=== PATIENT | female | born 1955 | race Caucasian/White ===

== ENCOUNTER 2021-08-21 23:30 | Inpatient (IN) ==
[2021-08-21] MEDS ORDERED: 0.9 % SODIUM CHLORIDE 1,000 ML IV ONE (23:37)
[2021-08-21] MEDS ORDERED: ONDANSETRON 4 MG/2 ML VIAL IV ONE (23:37)
[2021-08-22 00:04] LABS: POC Calcium, Ionized 1.07 (1.16-1.32); POC Creatinine 1.5 (0.6-1.2); POC Potassium 4.4 (3.3-5.1)
[2021-08-22] MEDS ORDERED: 0.9 % SODIUM CHLORIDE 1,000 ML IV ONE ×2 (00:08→03:22)
--- NOTE | 2021-08-22 00:11 | Emergency Department Note ---
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 (Reason: Pain) 0RF Pepto-Bismol Max St 525 mg/15 mL suspension 525 mg PO QID PRN (Reason: diarrhea) Qty: 354 0RF Rx Instructions: do not exceed 8 doses in a 24 hour period diarrhe nystatin 100,000 unit/gram powder 1 applic TOPICAL QDAY Qty: 30 12RF Label Comments: For 14 days- Apply under breasts Rx Instructions: Apply under breasts and in groin benzonatate 100 mg capsule 100 mg PO Q8H PRN0RF tramadol 50 mg tablet 50 mg PO Q4H PRN0RF olopatadine 0.2 % drops 1 drp ophthalmic (eye) QDAY PRN (Reason: itching) Qty: 2.5 0RF Tresiba FlexTouch U-200 See Rx Instructions .ROUTE .COMPLEX 0RF Rx Instructions: 25 U in evening, 30 in AM magnesium citrate Solution 300 ml PO ONCE Qty: 296 0RF Rx Instructions: as a single dose polyethylene glycol 3350 [Miralax] 17 gram/dose powder 17 g PO QDAY Qty: 119 0RF Gemtesa 75 mg tablet 75 mg PO QDAY Qty: 90 3RF
[2021-08-22 00:41] LABS: Basophils # (Auto) 0.05 K/mcL (0.00-0.30); Basophils % (Auto) 0.3 % (0.0-2.0); Eosinophils # (Auto) 0.04 K/mcL (0.00-0.70); Eosinophils % (Auto) 0.2 % (0.0-7.0); Hematocrit 43.1 % (34.1-44.9); Hemoglobin 13.3 g/dL (11.2-15.7); Lymphocytes # (Auto) 2.39 K/mcL (1.50-4.80); Lymphocytes % (Auto) 12.2 % (15.5-49.0); Mean Cell Volume 76.8 fL (80.0-100.0); Mean Corpuscular HGB Conc 30.9 g/dL (31.0-36.0); Mean Platelet Volume 9.7 fL (7.4-10.4); Monocytes # (Auto) 1.46 K/mcL (0.10-0.90); Monocytes % (Auto) 7.4 % (1.0-12.0); Neutrophils % (Auto) 79.5 % (38.0-78.0); Platelet Count 363 K/mcL (140-440); RBC 5.61 M/mcL (3.59-5.38); Red Cell Distribution Width 15.6 % (11.5-14.5); WBC 19.6 K/mcL (4.5-11.0)
[2021-08-22] MEDS ORDERED: ONDANSETRON 4 MG/2 ML VIAL IV ONE ×2 (01:54→04:07)
[2021-08-22 02:35] LABS: POC Calcium, Ionized 1.04 (1.16-1.32); POC Creatinine 1.4 (0.6-1.2); POC Potassium 4.3 (3.3-5.1)
[2021-08-22] MEDS ORDERED: VANCOMYCIN 1,000 MG in 0.9 % SODIUM CHLORIDE 250 ML IV ONE (03:18)
[2021-08-22] MEDS ORDERED: cefTRIAXone 1 GM VIAL IV ONE (03:19)
[2021-08-22 03:47] LABS: Appearance,Urine Clear (Clear); Bilirubin,Urine Negative (Negative); Color,Urine Yellow; Culture Indicated,Urine No; Glucose,Urine (UA) Negative (Negative); Ketones,Urine Trace mg/dL (Negative); Leukocyte Esterase,Urine Negative /uL (Negative); Mucus,Urine MOD /hpf; Nitrate,Urine Negative (Negative); Protein,Urine >=300 mg/dL mg/dL (Negative); Urine Blood Negative ery/mcL (Negative); Urine Hyaline Cast 7 /lph (0-2); Urine RBC 1 /hpf (0-3); Urine Squamous Epithelial Cell 1 /hpf (0-4); Urine WBC 9 /hpf (0-4); Urobilinogen,Urine Normal
[2021-08-22] MEDS ORDERED: PROMETHAZINE 50 MG/ML AMPUL IM ONE (04:07)
[2021-08-22] MEDS ORDERED: ONDANSETRON 4 MG/2 ML VIAL ONE (04:17)
[2021-08-22] MEDS ORDERED: PROMETHAZINE 25 MG/ML VIAL IV ONE (04:39)
--- NOTE | 2021-08-22 06:56 | Cat Scan Report ---
INDICATION: Worsening abdominal pain, severe contrast allergy COMPARISON: Previous examination dated 08/20/2021, 0-20 07/06/2021 TECHNIQUE: Axial images were obtained through the abdomen and pelvis. Sagittally and coronally reformatted images. FINDINGS: Examination was initially interpreted by [facility] Lung bases:No pulmonary parenchymal density. No calcified or noncalcified nodule. No pleural or pericardial effusion Liver:Negative to the limits of noncontrast enhanced examination. Liver contour is smooth without evidence for cirrhosis Gallbladder, bilary:Gallbladder is not identified. No dilated bile ducts Spleen:No splenomegaly Pancreas:No pancreatic mass. No peripancreatic abnormality Adrenal glands:Negative Kidneys,ureters,bladder:There are cortical calcifications in the left kidney, unchanged. No hydronephrosis. No hydroureter. No ureteral calculus. No bladder stone. No detectable bladder mass. Gastrointestinal:Somewhat prominent fecal material within the sigmoid colon and rectum. Colon is otherwise negative. No detectable colonic mass Findings consistent with mechanical small bowel obstruction. Stomach and duodenum are somewhat distended and fluid-filled. Jejunum is distended and measures approximately 5 cm in cross-sectional diameter. There appears to be a transition point within the midline pelvis. There is no closed-loop obstruction. Mechanical small bowel obstruction was present on 08/20/2021 although not described. Appendix: The appendix is not well visualized. No evidence for appendicitis Vascular:No abdominal aortic aneurysm Lymphatic:No retroperitoneal adenopathy. No significant mesenteric adenopathy. Mesentery, peritoneum:No free intraperitoneal fluid. No intra-abdominal abscess. No pneumoperitoneum Reproductive:Uterus is not identified. No adnexal mass Musculoskeletal:Severe left convex lumbar scoliosis. No acute compression fracture. Sacrum is negative. No fracture. No lytic lesion. Pelvis is negative. No anterior abdominal wall or inguinal hernia. IMPRESSION: 1. Mechanical small bowel obstruction as above. Dilated fluid-filled jejunum. Distended fluid-filled stomach and duodenum 2. No evidence for closed loop obstruction 3. Severe left convex lumbar scoliosis The exam was performed using radiation dose optimization techniques including, but not limited to, automated exposure control, adjustment of the mA and/or kV according to patient size and use of iterative reconstruction technique. Interpreted and Authenticated by: Simon Silva 08/22/21
--- NOTE | 2021-08-22 06:59 | XRay Report ---
INDICATION: leukocytosis TECHNIQUE: AP portable semiupright chest x-ray COMPARISON: Previous chest x-ray dated 06/25/2020 FINDINGS: Lungs:Lungs are negative. No focal pulmonary parenchymal infiltrate or mass Heart, vascular:No significant cardiomegaly. Pulmonary vascularity is normal. No pulmonary edema or pulmonary congestion Mediastinum, beti:No mediastinal widening. No hilar mass Pleura:No pleural fluid. No pleural-based mass or calcification. Right hemidiaphragm is elevated, slightly increased since previous examination Skeletal:Negative. IMPRESSION: 1. Mildly elevated right hemidiaphragm 2. Otherwise negative chest x-ray. No focal pulmonary parenchymal infiltrates Interpreted and Authenticated by: Simon Silva 08/22/21
--- NOTE | 2021-08-22 07:00 | XRay Report ---
INDICATION: ng tube placement TECHNIQUE: Supine abdomen. COMPARISON: Abdominal and pelvic CT scan dated 08/22/2021 FINDINGS:Esophagogastric tube in the proximal stomach. Dilated gas-filled small bowel consistent with mechanical small bowel obstruction IMPRESSION: Esophagogastric tube in the proximal stomach Interpreted and Authenticated by: Simon Silva 08/22/21
[2021-08-22] MEDS ORDERED: HYDROmorphone 0.5 MG/0.5 ML SYRINGE IV PRN (08:08)
[2021-08-22] MEDS ORDERED: diphenhydrAMINE 50 MG/ML VIAL IV ONE (11:26)
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
[2021-08-22] MEDS: ONDANSETRON 4 MG/2 ML VIAL IV PRN ×2 (14:43→22:06)
[2021-08-22] MEDS: DEXTROSE 5%-LR 1,000 ML IV SCH ×2 (14:44→22:55)
[2021-08-22] MEDS: ENOXAPARIN 40 MG/0.4 ML SYRINGE SQ SCH (14:44)
[2021-08-22] MEDS ORDERED: LORazepam 2 MG/ML VIAL IV PRN (18:58)
--- NOTE | 2021-08-22 19:01 | General Surgery Progress Note ---
SUBJECTIVE Subjective Patient information: Note initiated : 08/22/21 at 6:58 pm Service Date, if different from initiated Date: [] Patient: Nika Carty 65 y/o F admitted on 08/22/21 for Nausea, Vomiting. Chief Complaint: [] Interval history: Patient admitted with pSBO, currently getting sbft. Called by Nurse at 1826 saying "patient does not look well" and "has been throwing up all over". Came to see patient, according to patient she feels much better this evening, had one large emisis around 1800 with one small one after, however feels much less distended, no further abdominal pain. Patient placed back to [facility] on NGT. Constitutional Vitals: Vital Signs Temp Pulse Resp BP Pulse Ox 96.8 F L 75 16 92/58 92 08/22/21 16:00 08/22/21 16:00 08/22/21 16:00 08/22/21 16:00 08/22/21 16:00 Period Temp Pulse Resp BP Sys/Benson Pulse Ox Last 24 Hr 96.6 F-96.9 F 75-96 16-17 90-170/42-92 84-100 Intake and Output 08/22/21 08/22/21 08/22/21 05:59 13:59 21:59 Intake Total 2250 0 1000 Balance 2250 0 1000 Weight 230 lb 230 lb Patient Weight 08/23/21 05:59 Weight 230 lb Intake & Output: Intake & Output 08/22/21 08/22/21 08/22/21 05:59 13:59 21:59 Intake Total 2250 0 1000 Balance 2250 0 1000 Weight 230 lb 230 lb Intake: IV 2250 1000 Sodium Chloride 0.9% 1,000 ml @ 2000 1000 Wide Open IV BOLUS ONE Rx#: [id number] Vancomycin 1,000 mg In Sodium 250 Chloride 0.9% 250 ml @ 250 mls/ hr IV ONCE ONE Rx#:[id number] Oral 0 General appearance: cooperative and no acute distress GI/Abdominal GI/Abdominal exam: Present soft; Absent distended, rebound, rigid or tenderness A/P Assessment and plan (1) SBO (small bowel obstruction): Plan: cont NPO, NGT awaiting sbft KUB in am cbc, cmp in am Status: Acute Time Spent With Patient Time: Total time spent is greater than 50% in coordination of care (as documented) at patient's floor/unit and/or counseling patient:
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
[2021-08-22] MEDS ORDERED: DEXTROSE 50% 50 ML VIAL IV PRN (19:24)
[2021-08-22] MEDS ORDERED: DEXTROSE 31 GM ORAL.SUSP PO PRN (19:24)
[2021-08-22] MEDS: 0.9 % SODIUM CHLORIDE 10 ML SYRINGE IV SCH ×3 (19:28→22:55)
[2021-08-22] MEDS ORDERED: 0.9 % SODIUM CHLORIDE 250 ML IV ONE (19:46)
[2021-08-22] MEDS ORDERED: 0.9 % SODIUM CHLORIDE 500 ML IV ONE (19:48)
[2021-08-22] MEDS ORDERED: POTASSIUM CHLORIDE 20 MEQ TABLET PO PRN ×2 (19:51)
[2021-08-22] MEDS ORDERED: MAGNESIUM SULFATE 2 GM/50 ML BAG IV PRN (19:51)
[2021-08-22] MEDS ORDERED: POTASSIUM CHLORIDE 40 MEQ in DEXTROSE 5% IN WATER 500 ML IV PRN (19:51)
[2021-08-22] MEDS ORDERED: IPRATROPIUM/ALBUTEROL 3 ML AMPUL.NEB NEB PRN (19:51)
[2021-08-22 20:26] LABS: Band Neutrophils % 2 % (0-10); Eosinophils % (Manual) 1 % (0-7); Lymphocytes % 12 % (15-49); Monocytes % (Manual) 9 % (1-12); Platelet Estimate NORMAL (Normal); RBC Morphology NORMAL (Normal); Segmented Neutrophils % 76 % (38-78)
[2021-08-22] MEDS ORDERED: SODIUM CHLORIDE 0.9% IV ONE (21:00)
[2021-08-22] MEDS ORDERED: INSULIN LISPRO 1 UNIT/0.01 ML UNIT SQ SCH (21:00)
[2021-08-22] MEDS ORDERED: FOSPHENYTOIN IV ONE (21:00)
[2021-08-22] MEDS: INSULIN LISPRO 1 UNIT/0.01 ML UNIT SQ SCH (22:06)
[2021-08-22] MEDS: FAMOTIDINE/PF 20 MG/2 ML VIAL IV SCH (22:06)
[2021-08-22] MEDS: PHENYTOIN SOD 100 MG/2 ML VIAL IV SCH (22:07)
[2021-08-22 23:59] LABS: Hemoglobin A1C 9.1 % Hgb (4.0-6.0)
[2021-08-23] MEDS: INSULIN LISPRO 1 UNIT/0.01 ML UNIT SQ SCH ×6 (00:57→23:26)
[2021-08-23] MEDS: DEXTROSE 5%-LR 1,000 ML IV SCH ×2 (00:59→03:44)
[2021-08-23] MEDS: 0.9 % SODIUM CHLORIDE 10 ML SYRINGE IV SCH ×6 (04:28→20:11)
[2021-08-23 07:22] LABS: Basophils # (Auto) 0.04 K/mcL (0.00-0.30); Basophils % (Auto) 0.3 % (0.0-2.0); Eosinophils # (Auto) 0.11 K/mcL (0.00-0.70); Eosinophils % (Auto) 0.7 % (0.0-7.0); Hematocrit 40.1 % (34.1-44.9); Hemoglobin 11.7 g/dL (11.2-15.7); Lymphocytes # (Auto) 2.33 K/mcL (1.50-4.80); Lymphocytes % (Auto) 14.7 % (15.5-49.0); Mean Cell Volume 80.7 fL (80.0-100.0); Mean Corpuscular HGB Conc 29.2 g/dL (31.0-36.0); Mean Platelet Volume 10.4 fL (7.4-10.4); Monocytes # (Auto) 1.17 K/mcL (0.10-0.90); Monocytes % (Auto) 7.4 % (1.0-12.0); Neutrophils % (Auto) 76.5 % (38.0-78.0); Platelet Count 271 K/mcL (140-440); RBC 4.97 M/mcL (3.59-5.38); Red Cell Distribution Width 15.7 % (11.5-14.5); WBC 15.8 K/mcL (4.5-11.0)
[2021-08-23 07:39] LABS: ALT/SGPT 15 U/L (<40); AST/SGOT 18 U/L (<32); Albumin 3.6 gm/dL (3.2-5.2); Alkaline Phosphatase 140 U/L (39-117); Bilirubin,Direct < 0.2 mg/dL (0-0.3); Bilirubin,Total 0.3 mg/dL (0.1-1.0); Blood Urea Nitrogen 24 mg/dL (8-23); Carbon Dioxide 31 mmol/L (22-30); Chloride 102 mmol/L (96-108); Globulin 3.7 gm/dL (2.2-3.7); Glomerular Filtration Rate 47; Glucose 179 mg/dL (70-105); Lactate Dehydrogenase 232 U/L (135-225); Phosphorous 4.9 mg/dL (2.5-4.5); Triglycerides 256 mg/dL (<150); Uric Acid 10.3 mg/dL (2.5-8.0)
[2021-08-23] MEDS: LEVOTHYROXINE 100 MCG VIAL IV SCH (07:54)
[2021-08-23] MEDS ORDERED: DEXTROSE 5% IN WATER 250 ML IV ONE (08:13)
--- NOTE | 2021-08-23 08:14 | Internal Med Progress Note ---
SUBJECTIVE Subjective Patient information: Note initiated : 08/23/21 at 8:08 am Service Date, if different from initiated Date: [] Patient: Nika Carty 65 y/o F admitted on 08/22/21 for Nausea, Vomiting. Chief Complaint: [] Interval history: History of present illness: Presented to the ED not feeling well and complaining of nausea vomiting and weakness, also diagnosed with influenza the previous day. Flu screen in the ED was negative. Patient having vomiting multiple times a day the past couple days. Last BM was about 6 days ago. Nominal pain is severely achy diffuse but worse in the left abdomen. Denies fever chills headaches. No chest pain. Has chronic shortness of breath at baseline. Patient unable to keep any liquids down. CT showed signs consistent with small bowel obstruction. NG tube was placed and case was discussed with Dr. Villarreal also found to be dehydrated now elevated BUN/creatinine. Also given empiric antibiotics because she met SIRS criteria. Chest x-ray and UA unremarkable for any infectious process. She did have a leukocytosis but no fevers. Leukocytosis likely reactive from nausea vomiting. 08/23 Patient has nausea. She has abdominal pain but has improved. She is not passing any flatus. Sodium elevated will adjust IV fluids. Review of Systems: denies headache/fever/chills/vomiting/chest pain/cough/dyspnea/diarrhea. Otherwise see above. Constitutional Vitals: Vital Signs Temp Pulse Resp BP Pulse Ox 97.1 F 74 22 114/57 96 08/23/21 02:49 08/23/21 02:49 08/23/21 02:49 08/23/21 02:49 08/23/21 02:49 Period Temp Pulse Resp BP Sys/Benson Pulse Ox Last 24 Hr 96.6 F-98.2 F 74-92 16-24 90-136/42-66 90-97 Intake and Output 08/22/21 08/23/21 08/23/21 21:59 05:59 13:59 Intake Total 1564 936 Output Total 1750 1750 125 Balance -186 -814 -125 Weight 106.821 kg Intake & Output: Intake & Output 08/22/21 08/23/21 08/23/21 21:59 05:59 13:59 Intake Total 1564 936 Output Total 1750 1750 125 Balance -186 -814 -125 Weight 106.821 kg Intake: IV 1564 936 Sodium Chloride 0.9% 1,000 ml @ 1000 Wide Open IV BOLUS ONE Rx#: [id number] Sodium Chloride 0.9% 500 ml @ 500 250 mls/hr IV BOLUS ONE Rx#: [id number] Dextrose 5%-Lactated Ringers 1, 564 436 000 ml @ 125 mls/hr IV .Q8H [facility] Rx#:[id number] Oral 0 Tube Feeding 0 0 Output: Gastric Drainage 1750 1150 Right Nare 1750 1150 Urine Catheter Amount 600 125 Uretheral (Rodriguez) 450 Other: Percent of Meal Consumed NPO Urine Appearance Clear Clear Uretheral (Rodriguez) Clear Urine Color Dark Abbie Dark Abbie Uretheral (Rodriguez) Dark Abbie Urine Odor Strong Strong Uretheral (Rodriguez) Strong # Emeses 1 Exam: General: Alert, Awake, No acute Distress, obese Eyes/N/T: EOMI, Head/Neck: neck supple, CV: RRR, No murmurs, Pulm: Clear b/l, no wheezing/rhonchi/rales Abd: soft,tender and distended, decreased BS x4 Ext: no clubbing/cyanosis/edema Neuro: Alert, no focal deficits, moves all extremities, Skin: warm/dry OBJ DATA Labs CBC & Chem 7: 08/23/21 05:23 08/23/21 05:23 Labs: Abnormal Lab Results 08/23/21 08/23/21 08/22/21 05:23 05:23 02:41 WBC 15.8 H RBC MCV MCH 23.5 L MCHC 29.2 L RDW 15.7 H Neut % (Auto) Lymph % (Auto) 14.7 L [place] # (Auto) 1.17 H Lymphocytes % Immature Gran # 0.07 H Absolute Neutrophils 12.16 H POC VBG pH POC VBG pO2 POC VBG HCO3 POC VBG Total CO2 POC Venous O2 Sat POC VBG Base Excess Sodium 146 H Carbon Dioxide 31 H POC Total CO2 POC BUN BUN 24 H Creatinine 1.2 H POC Creatinine Glucose 179 H POC Glucose Hemoglobin A1c Uric Acid 10.3 H POC WB Ioniz Calcium Phosphorus 4.9 H GGT 319 H Alkaline Phosphatase 140 H Lactate Dehydrogenase 232 H Triglycerides 256 H Urine Protein >=300 mg/dl A Urine Ketones Trace A Urine WBC 9 H Hyaline Casts 7 H Urine Mucus Mod A 08/22/21 08/22/21 08/22/21 02:32 02:27 00:09 WBC RBC MCV MCH MCHC RDW Neut % (Auto) Lymph % (Auto) [place] # (Auto) Lymphocytes % Immature Gran # Absolute Neutrophils POC VBG pH 7.45 H POC VBG pO2 90 H POC VBG HCO3 32.3 H POC VBG Total CO2 34.0 H POC Venous O2 Sat 97.0 H POC VBG Base Excess 8.0 H* Sodium Carbon Dioxide POC Total CO2 POC BUN 31 H BUN Creatinine POC Creatinine 1.4 H Glucose POC Glucose 248 H Hemoglobin A1c 9.1 H Uric Acid POC WB Ioniz Calcium 1.04 L Phosphorus GGT Alkaline Phosphatase Lactate Dehydrogenase Triglycerides Urine Protein Urine Ketones Urine WBC Hyaline Casts Urine Mucus 08/22/21 08/22/21 08/22/21 00:09 00:09 00:01 WBC 19.6 H RBC 5.61 H MCV 76.8 L MCH 23.7 L MCHC 30.9 L RDW 15.6 H Neut % (Auto) 79.5 H Lymph % (Auto) 12.2 L [place] # (Auto) 1.46 H Lymphocytes % 12 L Immature Gran # 0.08 H Absolute Neutrophils 15.70 H POC VBG pH POC VBG pO2 POC VBG HCO3 POC VBG Total CO2 POC Venous O2 Sat POC VBG Base Excess Sodium Carbon Dioxide POC Total CO2 31.0 H POC BUN 35 H BUN Creatinine POC Creatinine 1.5 H Glucose POC Glucose 276 H Hemoglobin A1c Uric Acid POC WB Ioniz Calcium 1.07 L Phosphorus GGT Alkaline Phosphatase Lactate Dehydrogenase Triglycerides Urine Protein Urine Ketones Urine WBC Hyaline Casts Urine Mucus Meds: Medications Albuterol/Ipratropium (Ipratropium/Albuterol 3 Ml Ampul.Neb) 3 ml NEB Q4HP PRN PRN Reason: Shortness Of Breath Dextrose (Dextrose 50% 50 Ml Vial) 0 ml IV UD PRN PRN Reason: Per Sliding Scale Diagnostic Test (Pha) (Accu-Chek 1 Each Strip) 1 each FS Q6H [facility] Last Admin: 08/23/21 05:34 Dose: 1 each Documented by: Enoxaparin Sodium (Enoxaparin 40 Mg/0.4 Ml Syringe) 40 mg SQ DAILY [facility] Last Admin: 08/22/21 14:44 Dose: 40 mg Documented by: Famotidine (Famotidine/Pf 20 Mg/2 Ml Vial) 20 mg IV Q12 [facility] Last Admin: 08/22/21 22:06 Dose: 20 mg Documented by: Glucose (Dextrose 31 Gm Oral.Susp) 15 gm PO PRN PRN PRN Reason: Hypoglycemia Hydromorphone HCl (Hydromorphone 0.5 Mg/0.5 Ml Syringe) 0.5 mg IV Q2HP PRN; Pr otocol PRN Reason: Per Pain Protocol Dextrose/Lactated Ringer's (Dextrose 5%-Lactated Ringers) 1,000 mls @ 125 mls/hr IV .Q8H [facility] Last Admin: 08/23/21 03:44 Dose: 125 mls/hr Documented by: Potassium Chloride 40 meq/ (Dextrose) 520 mls @ 130 mls/hr IV UD PRN PRN Reason: Potassium < 3 Magnesium Sulfate (Magnesium Sulfate) 2 gm in 50 mls @ 50 mls/hr IV UD PRN PRN Reason: Magnesium </= 1.6 Insulin Human Lispro (Insulin Lispro 1 Unit/0.01 Ml Unit) 0 unit SQ Q6H [facility]; Protocol Last Admin: 08/23/21 06:46 Dose: Not Given Documented by: Levothyroxine Sodium (Levothyroxine 100 Mcg Vial) 125 mcg IV QAMAC [facility] Last Admin: 08/23/21 07:54 Dose: 125 mcg Documented by: Lorazepam (Lorazepam 2 Mg/Ml Vial) 1 - 2 mg IV Q2HP PRN PRN Reason: Seizure Activity Ondansetron HCl (Ondansetron 4 Mg/2 Ml Vial) 4 mg IV Q6HP PRN PRN Reason: Nausea And Vomiting Last Admin: 08/22/21 22:06 Dose: 4 mg Documented by: Phenytoin Sodium (Phenytoin Sod 100 Mg/2 Ml Vial) 200 mg IV QAM [facility] Phenytoin Sodium (Phenytoin Sod 100 Mg/2 Ml Vial) 300 mg IV QHS [facility] Last Admin: 08/22/21 22:07 Dose: 300 mg Documented by: Potassium Chloride (Potassium Chloride 20 Meq Tablet) 40 meq PO UD PRN PRN Reason: Potssium is 3-3.5 Potassium Chloride (Potassium Chloride 20 Meq Tablet) 40 meq PO UD PRN PRN Reason: Potassium < 3 Sodium Chloride (0.9 % Sodium Chloride 10 Ml Syringe) 10 ml IV Q8 [facility] Last Admin: 08/23/21 04:28 Dose: Not Given Documented by: Sodium Chloride (0.9 % Sodium Chloride 10 Ml Syringe) 10 ml IV Q8 [facility] Last Admin: 08/23/21 04:28 Dose: Not Given Documented by: A/P Narrative A/P Narrative: A: *SBO: *ANDRES on CKD II: improving *Volume depletion: *DM w/hyperglycemia on admit: -A1c 9.1 *Leukocytosis: Likely reactive. afebrile, no bandemia, cxr/ua unremarkable *Mild Hypernatremia: *h/o Sz d/o: on phenytoin *Depression/anxiety: *Hypothyroidism: *GERD: *Obesity: bmi 35 *KYLEE: But does not tolerate home BiPAP *Asthma: P: -SBO/Diet/NGT/imaging per surgery -IVF adjust -f/u renal fxn -basal (at reduced dose while npo vs hold based on trend) and SSI, metformin held -cont home IH's, prn neb -oral meds to IV including phenytoin -Home medication reconciliation -ppx: lovenox / h2 Time Spent With Patient Time: Total time spent is greater than 50% in coordination of care (as documented) at patient's floor/unit and/or counseling patient: Total time spent with greater than 50% in coordination of care (as documented) at patient's floor/unit and/or counseling patient:: 35 - 50 minutes QUALITY VTE Deep Vein Thrombosis/Pulmonary Embolism Present on Admission: No
[2021-08-23] MEDS ORDERED: POTASSIUM CHLORIDE 10 MEQ in 0.45 % SODIUM CHLORIDE 1,000 ML IV SCH (08:15)
--- NOTE | 2021-08-23 08:39 | General Surgery Progress Note ---
SUBJECTIVE Subjective Patient information: Note initiated : 08/23/21 at 8:35 am Service Date, if different from initiated Date: [] Patient: Nika Carty 65 y/o F admitted on 08/22/21 for Nausea, Vomiting. Chief Complaint: [] Interval history: Patient feels better this morning, she feels less distended. Small bowel follow-through showed contrast hung up in the small bowel not in through colon. KUB this morning does not show contrast into colon although patient was placed back on NG tube suction due to emesis yesterday. Constitutional Vitals: Vital Signs Temp Pulse Resp BP Pulse Ox 97.1 F 74 22 114/57 96 08/23/21 02:49 08/23/21 02:49 08/23/21 02:49 08/23/21 02:49 08/23/21 02:49 Period Temp Pulse Resp BP Sys/Benson Pulse Ox Last 24 Hr 96.6 F-98.2 F 74-92 16-24 90-122/42-66 90-97 Intake and Output 08/22/21 08/23/21 08/23/21 21:59 05:59 13:59 Intake Total 1564 936 Output Total 1750 1750 125 Balance -186 -814 -125 Weight 235 lb 8 oz Intake & Output: Intake & Output 08/22/21 08/23/21 08/23/21 21:59 05:59 13:59 Intake Total 1564 936 Output Total 1750 1750 125 Balance -186 -814 -125 Weight 235 lb 8 oz Intake: IV 1564 936 Sodium Chloride 0.9% 1,000 ml @ 1000 Wide Open IV BOLUS ONE Rx#: [id number] Sodium Chloride 0.9% 500 ml @ 500 250 mls/hr IV BOLUS ONE Rx#: [id number] Dextrose 5%-Lactated Ringers 1, 564 436 000 ml @ 125 mls/hr IV .Q8H [facility] Rx#:[id number] Oral 0 Tube Feeding 0 0 Output: Gastric Drainage 1750 1150 Right Nare 1750 1150 Urine Catheter Amount 600 125 Uretheral (Rodriguez) 450 Other: Percent of Meal Consumed NPO Urine Appearance Clear Clear Uretheral (Rodriguez) Clear Urine Color Dark Abbie Dark Abbie Uretheral (Rodriguez) Dark Abbie Urine Odor Strong Strong Uretheral (Rodriguez) Strong # Emeses 1 General appearance: cooperative and no acute distress GI/Abdominal GI/Abdominal exam: Present soft; Absent distended or tenderness A/P Assessment and plan (1) SBO (small bowel obstruction): Plan: Partial small bowel obstruction, no resolution with small bowel follow-through. Plan: Continue n.p.o., NG tube suction. Clinically patient feels better and is less distended. We will continue to follow at this time. Appreciate hospitalist input on medical problems. Status: Acute Time Spent With Patient Time: Total time spent is greater than 50% in coordination of care (as documented) at patient's floor/unit and/or counseling patient:
--- NOTE | 2021-08-23 08:51 | XRay Report ---
INDICATION: sbo TECHNIQUE: Oral contrast material was administered through the esophagogastric tube. Serial imaging was performed to 20 hours postingestion. COMPARISON: CT scan dated 08/22/2021 FINDINGS: Persistent jejunal dilatation. Maximum cross-sectional jejunal diameter measures 5.5 cm. Small bowel contrast material does not readily pass through the small bowel. At 4 hours post ingestion there is dilated opacified small bowel within the pelvis. By 20 hours postingestion. Contrast material is largely absorbed and not apparent. There is no contrast material identified within the colon. Appearance is consistent with high-grade mechanical small bowel obstruction IMPRESSION: 1. Dissolution and absorption of contrast material by 20 hours postingestion. There is no contrast material identified within colon 2. Appearance remains consistent with high-grade mechanical small bowel obstruction Interpreted and Authenticated by: Simon Silva 08/23/21
[2021-08-23] MEDS: PHENYTOIN SOD 100 MG/2 ML VIAL IV SCH ×2 (09:59→20:10)
[2021-08-23] MEDS: FAMOTIDINE/PF 20 MG/2 ML VIAL IV SCH ×2 (09:59→20:10)
[2021-08-23] MEDS ORDERED: METHOCARBAMOL 1,000 MG/10 ML VIAL IV PRN (10:00)
[2021-08-23] MEDS: ENOXAPARIN 40 MG/0.4 ML SYRINGE SQ SCH (10:00)
[2021-08-23] MEDS ORDERED: OLOPATADINE 0.2% OU PRN (10:08)
[2021-08-23] MEDS: POTASSIUM CHLORIDE 20 MEQ in 0.45 % SODIUM CHLORIDE 1,000 ML IV SCH ×3 (10:14→19:45)
[2021-08-23] MEDS ORDERED: BENZOCAINE 1 SPRAY BOTTLE TOPICAL ONE (12:41)
[2021-08-23] MEDS ORDERED: BENZOCAINE 20% TOPICAL PRN (15:41)
[2021-08-24] MEDS: POTASSIUM CHLORIDE 20 MEQ in 0.45 % SODIUM CHLORIDE 1,000 ML IV SCH (03:45)
[2021-08-24] MEDS: 0.9 % SODIUM CHLORIDE 10 ML SYRINGE IV SCH ×6 (05:37→21:04)
[2021-08-24] MEDS: INSULIN LISPRO 1 UNIT/0.01 ML UNIT SQ SCH ×3 (06:05→17:21)
[2021-08-24 06:06] LABS: Basophils # (Auto) 0.04 K/mcL (0.00-0.30); Basophils % (Auto) 0.3 % (0.0-2.0); Eosinophils % (Auto) 2.5 % (0.0-7.0); Hematocrit 41.4 % (34.1-44.9); Hemoglobin 11.8 g/dL (11.2-15.7); Lymphocytes # (Auto) 2.32 K/mcL (1.50-4.80); Mean Cell Volume 82.6 fL (80.0-100.0); Mean Corpuscular HGB Conc 28.5 g/dL (31.0-36.0); Mean Platelet Volume 9.6 fL (7.4-10.4); Monocytes # (Auto) 0.83 K/mcL (0.10-0.90); Monocytes % (Auto) 6.8 % (1.0-12.0); Neutrophils % (Auto) 71.1 % (38.0-78.0); Platelet Count 239 K/mcL (140-440); RBC 5.01 M/mcL (3.59-5.38); Red Cell Distribution Width 15.3 % (11.5-14.5); WBC 12.2 K/mcL (4.5-11.0)
[2021-08-24 06:32] LABS: ALT/SGPT 21 U/L (<40); AST/SGOT 34 U/L (<32); Albumin 3.6 gm/dL (3.2-5.2); Alkaline Phosphatase 150 U/L (39-117); Bilirubin,Direct 0.2 mg/dL (<0.3); Bilirubin,Total 0.4 mg/dL (0.1-1.0); Blood Urea Nitrogen 21 mg/dL (8-23); Calcium 9.3 mg/dL (8.6-10.4); Carbon Dioxide 30 mmol/L (22-30); Chloride 104 mmol/L (96-108); Globulin 3.6 gm/dL (2.2-3.7); Glomerular Filtration Rate 67; Glucose 122 mg/dL (70-105); Lactate Dehydrogenase 210 U/L (135-225); Phosphorous 3.4 mg/dL (2.5-4.5); Triglycerides 283 mg/dL (<150); Uric Acid 8.8 mg/dL (2.5-8.0)
[2021-08-24] MEDS: LEVOTHYROXINE 100 MCG VIAL IV SCH (06:42)
[2021-08-24] MEDS ORDERED: diphenhydrAMINE 50 MG/ML VIAL IV SCH (08:15)
--- NOTE | 2021-08-24 08:22 | Internal Med Progress Note ---
SUBJECTIVE Subjective Patient information: Note initiated : 08/24/21 at 8:20 am Service Date, if different from initiated Date: [] Patient: Nika Carty 65 y/o F admitted on 08/22/21 for Nausea, Vomiting. Chief Complaint: [] Interval history: History of present illness: Presented to the ED not feeling well and complaining of nausea vomiting and weakness, also diagnosed with influenza the previous day. Flu screen in the ED was negative. Patient having vomiting multiple times a day the past couple days. Last BM was about 6 days ago. Nominal pain is severely achy diffuse but worse in the left abdomen. Denies fever chills headaches. No chest pain. Has chronic shortness of breath at baseline. Patient unable to keep any liquids down. CT showed signs consistent with small bowel obstruction. NG tube was placed and case was discussed with Dr. Villarreal also found to be dehydrated now elevated BUN/creatinine. Also given empiric antibiotics because she met SIRS criteria. Chest x-ray and UA unremarkable for any infectious process. She did have a leukocytosis but no fevers. Leukocytosis likely reactive from nausea vomiting. 08/23 Patient has nausea. She has abdominal pain but has improved. She is not passing any flatus. Sodium elevated will adjust IV fluids. 08/24 Patient states she had small BM this morning. Overall feeling better as far as abdominal pain and less nausea. Renal function improved sodium improved. Small bowel follow-through ordered by surgery. Review of Systems: denies headache/fever/chills/vomiting/chest pain/cough/dyspnea/diarrhea. Otherwise see above. Constitutional Vitals: Vital Signs Temp Pulse Resp BP Pulse Ox O2 Del Method O2 Flow Rate 97.8 F 75 14 119/61 99 2 08/24/21 06:58 08/24/21 06:58 08/24/21 07:25 08/24/21 06:58 08/24/21 07:25 08/24/21 07:25 08/24/21 06:58 Period Temp Pulse Resp BP Sys/Benson Pulse Ox O2 Del Method O2 Flow Rate Last 24 Hr 96.7 F-98.1 F 65-78 14-20 103-119/60-74 94-99 Nasal Cannula- Room Air 2-2 Intake and Output 08/23/21 08/24/21 08/24/21 21:59 05:59 13:59 Intake Total 1260 998 0 Output Total 950 700 Balance 310 298 0 Weight 107.32 kg Intake & Output: Intake & Output 08/23/21 08/24/21 08/24/21 21:59 05:59 13:59 Intake Total 1260 998 0 Output Total 950 700 Balance 310 298 0 Weight 107.32 kg Intake: IV 1260 998 Dextrose 5% in Water 250 ml @ 250 250 mls/hr IV .Q1H ONE Rx#: [id number] Potassium Chloride 20 Meq In 1010 998 Sodium Chloride 0.45% 1,000 ml @ 125 mls/hr IV .Q8H5M COUNTS INCLUDE 234 BEDS AT THE [facility] Rx#: [id number] Oral 0 Tube Feeding 0 0 Output: Gastric Drainage 450 400 Right Nare 450 400 Urine Catheter Amount 500 300 Other: Urine Appearance Clear Clear Clear Uretheral (Rodriguez) Clear Clear Urine Color Dark Abbie Dark Abbie Dark Yellow Uretheral (Rodriguez) Dark Abbie Dark Yellow Urine Odor Normal Normal Strong Uretheral (Rodriguez) Normal Stool Size Small Stool Color Brown Stool Consistency Liquid Exam: General: Alert, Awake, No acute Distress, obese Eyes/N/T: EOMI, Head/Neck: neck supple, CV: RRR, No murmurs, Pulm: Clear b/l, no wheezing/rhonchi/rales Abd: soft,tender and distended, decreased BS x4 but better today Ext: no clubbing/cyanosis/edema Neuro: Alert, no focal deficits, moves all extremities, Skin: warm/dry OBJ DATA Labs CBC & Chem 7: 08/24/21 05:19 08/24/21 05:19 Labs: Abnormal Lab Results 08/24/21 08/24/21 08/23/21 05:19 05:19 05:23 WBC 12.2 H RBC MCV MCH 23.6 L MCHC 28.5 L RDW 15.3 H Neut % (Auto) Lymph % (Auto) [place] # (Auto) Lymphocytes % Immature Gran # Absolute Neutrophils 8.72 H POC VBG pH POC VBG pO2 POC VBG HCO3 POC VBG Total CO2 POC Venous O2 Sat POC VBG Base Excess Sodium 146 H Carbon Dioxide 31 H POC Total CO2 POC BUN BUN 24 H Creatinine 1.2 H POC Creatinine Glucose 122 H 179 H POC Glucose Hemoglobin A1c Uric Acid 8.8 H 10.3 H POC WB Ioniz Calcium Phosphorus 4.9 H GGT 370 H 319 H AST 34 H Alkaline Phosphatase 150 H 140 H Lactate Dehydrogenase 232 H Triglycerides 283 H 256 H Urine Protein Urine Ketones Urine WBC Hyaline Casts Urine Mucus 08/23/21 08/22/21 08/22/21 05:23 02:41 02:32 WBC 15.8 H RBC MCV MCH 23.5 L MCHC 29.2 L RDW 15.7 H Neut % (Auto) Lymph % (Auto) 14.7 L [place] # (Auto) 1.17 H Lymphocytes % Immature Gran # 0.07 H Absolute Neutrophils 12.16 H POC VBG pH 7.45 H POC VBG pO2 90 H POC VBG HCO3 32.3 H POC VBG Total CO2 34.0 H POC Venous O2 Sat 97.0 H POC VBG Base Excess 8.0 H* Sodium Carbon Dioxide POC Total CO2 POC BUN BUN Creatinine POC Creatinine Glucose POC Glucose Hemoglobin A1c Uric Acid POC WB Ioniz Calcium Phosphorus GGT AST Alkaline Phosphatase Lactate Dehydrogenase Triglycerides Urine Protein >=300 mg/dl A Urine Ketones Trace A Urine WBC 9 H Hyaline Casts 7 H Urine Mucus Mod A 08/22/21 08/22/21 08/22/21 02:27 00:09 00:09 WBC RBC MCV MCH MCHC RDW Neut % (Auto) Lymph % (Auto) [place] # (Auto) Lymphocytes % 12 L Immature Gran # Absolute Neutrophils POC VBG pH POC VBG pO2 POC VBG HCO3 POC VBG Total CO2 POC Venous O2 Sat POC VBG Base Excess Sodium Carbon Dioxide POC Total CO2 POC BUN 31 H BUN Creatinine POC Creatinine 1.4 H Glucose POC Glucose 248 H Hemoglobin A1c 9.1 H Uric Acid POC WB Ioniz Calcium 1.04 L Phosphorus GGT AST Alkaline Phosphatase Lactate Dehydrogenase Triglycerides Urine Protein Urine Ketones Urine WBC Hyaline Casts Urine Mucus 08/22/21 08/22/21 00:09 00:01 WBC 19.6 H RBC 5.61 H MCV 76.8 L MCH 23.7 L MCHC 30.9 L RDW 15.6 H Neut % (Auto) 79.5 H Lymph % (Auto) 12.2 L [place] # (Auto) 1.46 H Lymphocytes % Immature Gran # 0.08 H Absolute Neutrophils 15.70 H POC VBG pH POC VBG pO2 POC VBG HCO3 POC VBG Total CO2 POC Venous O2 Sat POC VBG Base Excess Sodium Carbon Dioxide POC Total CO2 31.0 H POC BUN 35 H BUN Creatinine POC Creatinine 1.5 H Glucose POC Glucose 276 H Hemoglobin A1c Uric Acid POC WB Ioniz Calcium 1.07 L Phosphorus GGT AST Alkaline Phosphatase Lactate Dehydrogenase Triglycerides Urine Protein Urine Ketones Urine WBC Hyaline Casts Urine Mucus Meds: Medications Albuterol/Ipratropium (Ipratropium/Albuterol 3 Ml Ampul.Neb) 3 ml NEB Q4HP PRN PRN Reason: Shortness Of Breath Dextrose (Dextrose 50% 50 Ml Vial) 0 ml IV UD PRN PRN Reason: Per Sliding Scale Diagnostic Test (Pha) (Accu-Chek 1 Each Strip) 1 each FS Q6H COUNTS INCLUDE 234 BEDS AT [facility] Last Admin: 08/24/21 05:55 Dose: 1 each Diphenhydramine HCl (Diphenhydramine 50 Mg/Ml Vial) 12.5 mg IV 0815 COUNTS INCLUDE 234 BEDS AT [facility] Stop: 08/24/21 11:00 Enoxaparin Sodium (Enoxaparin 40 Mg/0.4 Ml Syringe) 40 mg SQ DAILY COUNTS INCLUDE 234 BEDS AT [facility] Last Admin: 08/23/21 10:00 Dose: 40 mg Famotidine (Famotidine/Pf 20 Mg/2 Ml Vial) 20 mg IV Q12 [facility]S INCLUDE 234 BEDS AT [facility] Last Admin: 08/23/21 20:10 Dose: 20 mg Glucose (Dextrose 31 Gm Oral.Susp) 15 gm PO PRN PRN PRN Reason: Hypoglycemia Hydromorphone HCl (Hydromorphone 0.5 Mg/0.5 Ml Syringe) 0.5 mg IV Q2HP PRN; Protocol PRN Reason: Per Pain Protocol Last Admin: 08/24/21 06:42 Dose: 0.5 mg Potassium Chloride 40 meq/ (Dextrose) 520 mls @ 130 mls/hr IV UD PRN PRN Reason: Potassium < 3 Magnesium Sulfate (Magnesium Sulfate) 2 gm in 50 mls @ 50 mls/hr IV UD PRN PRN Reason: Magnesium </= 1.6 Potassium Chloride 20 meq/ (Sodium Chloride) 1,010 mls @ 125 mls/hr IV .Q8H5M COUNTS INCLUDE 234 BEDS AT [facility] Last Admin: 08/24/21 03:45 Dose: 125 mls/hr Insulin Human Lispro (Insulin Lispro 1 Unit/0.01 Ml Unit) 0 unit SQ Q6H COUNTS INCLUDE 234 BEDS AT [facility]; Protocol Last Admin: 08/24/21 06:05 Dose: Not Given Levothyroxine Sodium (Levothyroxine 100 Mcg Vial) 125 mcg IV QAMAC COUNTS INCLUDE 234 BEDS AT [facility] Last Admin: 08/24/21 06:42 Dose: 125 mcg Lorazepam (Lorazepam 2 Mg/Ml Vial) 1 - 2 mg IV Q2HP PRN PRN Reason: Seizure Activity Methocarbamol (Methocarbamol 1,000 Mg/10 Ml Vial) 750 mg IV Q8HP PRN PRN Reason: Muscle Spasm Benzocaine 20% 1 ([place] Bottle) 1 dose TOPICAL Q4HP PRN PRN Reason: SORE THROAT Last Admin: 08/23/21 17:13 Dose: 1 dose Ondansetron HCl (Ondansetron 4 Mg/2 Ml Vial) 4 mg IV Q6HP PRN PRN Reason: Nausea And Vomiting Last Admin: 08/22/21 22:06 Dose: 4 mg Fluticasone Furoate- Vilanterol [Breo Ellipta] 200 Mcg/25 Mcg Inhaler 1 dose INH DAILY [facility] Olopatadine 0.2 % (Ophthalmic Drops) 1 dose OU DAILYP PRN PRN Reason: itching Phenytoin Sodium (Phenytoin Sod 100 Mg/2 Ml Vial) 200 mg IV QAM COUNTS INCLUDE 234 BEDS AT [facility] Last Admin: 08/23/21 09:59 Dose: 200 mg Phenytoin Sodium (Phenytoin Sod 100 Mg/2 Ml Vial) 300 mg IV QHS COUNTS INCLUDE 234 BEDS AT [facility] Last Admin: 08/23/21 20:10 Dose: 300 mg Potassium Chloride (Potassium Chloride 20 Meq Tablet) 40 meq PO UD PRN PRN Reason: Potssium is 3-3.5 Potassium Chloride (Potassium Chloride 20 Meq Tablet) 40 meq PO UD PRN PRN Reason: Potassium < 3 Sodium Chloride (0.9 % Sodium Chloride 10 Ml Syringe) 10 ml IV Q8 COUNTS INCLUDE 234 BEDS AT [facility] Last Admin: 08/24/21 05:37 Dose: Not Given Sodium Chloride (0.9 % Sodium Chloride 10 Ml Syringe) 10 ml IV Q8 COUNTS INCLUDE 234 BEDS AT [facility] Last Admin: 08/24/21 06:06 Dose: Not Given A/P Narrative A/P Narrative: A: *SBO: small BM this morning *ANDRES on CKD II: improved *Volume depletion: improved *DM w/hyperglycemia on admit: -A1c 9.1 *Leukocytosis: Likely reactive. afebrile, no bandemia, cxr/ua unremarkable. improving w/o abx *Mild Hypernatremia: improving *h/o Sz d/o: on phenytoin *Depression/anxiety: *Hypothyroidism: *GERD: *Obesity: bmi 35 *KYLEE: But does not tolerate home BiPAP *Asthma: P: -SBO/Diet/NGT/imaging per surgery -IVF -f/u renal fxn -hold home basal while npo and SSI, metformin held -cont home IH's, prn neb -oral meds to IV including phenytoin -ppx: lovenox / h2 Time Spent With Patient Time: Total time spent is greater than 50% in coordination of care (as documented) at patient's floor/unit and/or counseling patient: Total time spent with greater than 50% in coordination of care (as documented) at patient's floor/unit and/or counseling patient:: 25 - 35 minutes QUALITY VTE Deep Vein Thrombosis/Pulmonary Embolism Present on Admission: No
[2021-08-24] MEDS: PHENYTOIN SOD 100 MG/2 ML VIAL IV SCH ×2 (08:42→20:47)
[2021-08-24] MEDS: 0.45 % SODIUM CHLORIDE 1,000 ML IV SCH ×3 (08:43→17:24)
[2021-08-24] MEDS: ENOXAPARIN 40 MG/0.4 ML SYRINGE SQ SCH (08:44)
[2021-08-24] MEDS: FAMOTIDINE/PF 20 MG/2 ML VIAL IV SCH ×2 (08:44→20:46)
[2021-08-24] MEDS: FLUTICASONE FUROATE VILANTEROL INH SCH (10:02)
[2021-08-24] MEDS: ONDANSETRON 4 MG/2 ML VIAL IV PRN (10:04)
[2021-08-24] MEDS ORDERED: DIATRIZOATE MEGLU/DIATRIZO SOD 120 ML BOTTLE PO ONE (11:08)
--- NOTE | 2021-08-24 11:35 | XRay Report ---
INDICATION: Follow-up partial small bowel obstruction TECHNIQUE: Water-soluble contrast material was given through an esophagogastric tube. Images were obtained at 2 hours and 3 hours post ingestion COMPARISON: Previous examination dated 08/22/2021 FINDINGS: Significant interval improvement. There is contrast material within the colon by 2 hours postingestion. There is contrast material in the rectum at 3 hours post ingestion. There is persistent small bowel but with decreased dilatation since 08/22/2021. IMPRESSION: 1. Significant interval improvement since 08/22/2021 2. Contrast material in the colon by 2 hours postingestion Interpreted and Authenticated by: Simon Silva 08/24/21
[2021-08-25] MEDS: INSULIN LISPRO 1 UNIT/0.01 ML UNIT SQ SCH ×2 (00:20→05:49)
[2021-08-25] MEDS: 0.45 % SODIUM CHLORIDE 1,000 ML IV SCH ×2 (01:40→08:10)
[2021-08-25] MEDS: 0.9 % SODIUM CHLORIDE 10 ML SYRINGE IV SCH ×2 (05:32→05:33)
[2021-08-25] MEDS ORDERED: LEVOTHYROXINE 100 MCG TABLET PO SCH (07:30)
[2021-08-25] MEDS ORDERED: LEVOTHYROXINE 75 MCG TABLET PO SCH (07:30)
[2021-08-25] MEDS: LEVOTHYROXINE 100 MCG VIAL IV SCH (08:09)
[2021-08-25] MEDS: ENOXAPARIN 40 MG/0.4 ML SYRINGE SQ SCH (08:21)
--- NOTE | 2021-08-25 08:22 | Internal Med Progress Note ---
SUBJECTIVE Subjective Patient information: Note initiated : 08/25/21 at 8:19 am Service Date, if different from initiated Date: [] Patient: Nika Carty 65 y/o F admitted on 08/22/21 for Nausea, Vomiting. Chief Complaint: [] Interval history: History of present illness: Presented to the ED not feeling well and complaining of nausea vomiting and weakness, also diagnosed with influenza the previous day. Flu screen in the ED was negative. Patient having vomiting multiple times a day the past couple days. Last BM was about 6 days ago. Nominal pain is severely achy diffuse but worse in the left abdomen. Denies fever chills headaches. No chest pain. Has chronic shortness of breath at baseline. Patient unable to keep any liquids down. CT showed signs consistent with small bowel obstruction. NG tube was placed and case was discussed with Dr. Villarreal also found to be dehydrated now elevated BUN/creatinine. Also given empiric antibiotics because she met SIRS criteria. Chest x-ray and UA unremarkable for any infectious process. She did have a leukocytosis but no fevers. Leukocytosis likely reactive from nausea vomiting. 08/23 Patient has nausea. She has abdominal pain but has improved. She is not passing any flatus. Sodium elevated will adjust IV fluids. 08/24 Patient states she had small BM this morning. Overall feeling better as far as abdominal pain and less nausea. Renal function improved sodium improved. Small bowel follow-through ordered by surgery. 08/25 Patient with multiple bowel movements overnight. Feeling better. Pending lab work. Review of Systems: denies headache/fever/chills/vomiting/chest pain/cough/dyspnea/diarrhea. Otherwise see above. Constitutional Vitals: Vital Signs Temp Pulse Resp BP Pulse Ox O2 Del Method O2 Flow Rate 97 F 67 18 101/55 98 3 08/25/21 03:08 08/25/21 03:08 08/25/21 03:08 08/25/21 03:08 08/25/21 03:08 08/25/21 03:08 08/25/21 03:08 Period Temp Pulse Resp BP Sys/Benson Pulse Ox O2 Del Method O2 Flow Rate Last 24 Hr 97 F-98.9 F 67-81 18-20 97-114/55-70 91-98 Nasal Cannula-Room Air 3-3 Intake and Output 08/24/21 08/25/21 08/25/21 21:59 05:59 13:59 Intake Total 1640 1050 Output Total 400 0 Balance 1240 1050 Weight 105.959 kg Intake & Output: Intake & Output 08/24/21 08/25/21 08/25/21 21:59 05:59 13:59 Intake Total 1640 1050 Output Total 400 0 Balance 1240 1050 Weight 105.959 kg Intake: IV 1000 1000 Sodium Chloride 0.45% 1,000 ml 1000 1000 @ 125 mls/hr IV .Q8H BRANDI Rx#: [id number] Oral 640 50 Output: Void Amount 400 # of times incontinent of urine 0 Other: Meal Lunch Percent of Meal Consumed 90% Feeding Ability Independent Urine Appearance Clear Urine Color Straw Urine Odor Strong Stool Size Large Large Stool Color Brown Brown Yellow Stool Consistency Dry and Hard Soft Liquid Liquid Loose Loose # Voids 1 # Bowel Movements 1 # of times incontinent of 1 Bowels Exam: General: Alert, Awake, No acute Distress, obese Eyes/N/T: EOMI, Head/Neck: neck supple, CV: RRR, No murmurs, Pulm: Clear b/l, no wheezing/rhonchi/rales Abd: soft, much less distended, +BS x4 Ext: no clubbing/cyanosis/edema Neuro: Alert, no focal deficits, moves all extremities, Skin: warm/dry OBJ DATA Labs CBC & Chem 7: 08/24/21 05:19 08/24/21 05:19 Labs: Abnormal Lab Results 08/24/21 08/24/21 08/23/21 05:19 05:19 05:23 WBC 12.2 H MCH 23.6 L MCHC 28.5 L RDW 15.3 H Lymph % (Auto) [place] # (Auto) Lymphocytes % Immature Gran # Absolute Neutrophils 8.72 H Sodium 146 H Carbon Dioxide 31 H BUN 24 H Creatinine 1.2 H Glucose 122 H 179 H Hemoglobin A1c Uric Acid 8.8 H 10.3 H Phosphorus 4.9 H GGT 370 H 319 H AST 34 H Alkaline Phosphatase 150 H 140 H Lactate Dehydrogenase 232 H Triglycerides 283 H 256 H 08/23/21 08/22/21 08/22/21 05:23 00:09 00:09 WBC 15.8 H MCH 23.5 L MCHC 29.2 L RDW 15.7 H Lymph % (Auto) 14.7 L [place] # (Auto) 1.17 H Lymphocytes % 12 L Immature Gran # 0.07 H Absolute Neutrophils 12.16 H Sodium Carbon Dioxide BUN Creatinine Glucose Hemoglobin A1c 9.1 H Uric Acid Phosphorus GGT AST Alkaline Phosphatase Lactate Dehydrogenase Triglycerides Meds: Medications Albuterol/Ipratropium (Ipratropium/Albuterol 3 Ml Ampul.Neb) 3 ml NEB Q4HP PRN PRN Reason: Shortness Of Breath Dextrose (Dextrose 50% 50 Ml Vial) 0 ml IV UD PRN PRN Reason: Per Sliding Scale Diagnostic Test (Pha) (Accu-Chek 1 Each Strip) 1 each FS Q6H [facility] Last Admin: 08/25/21 05:46 Dose: 1 each Enoxaparin Sodium (Enoxaparin 40 Mg/0.4 Ml Syringe) 40 mg SQ DAILY [facility] Last Admin: 08/24/21 08:44 Dose: 40 mg Famotidine (Famotidine 20 Mg Tablet) 20 mg PO BID BRANDI Glucose (Dextrose 31 Gm Oral.Susp) 15 gm PO PRN PRN PRN Reason: Hypoglycemia Hydromorphone HCl (Hydromorphone 0.5 Mg/0.5 Ml Syringe) 0.5 mg IV Q2HP PRN; Protocol PRN Reason: Per Pain Protocol Last Admin: 08/24/21 06:42 Dose: 0.5 mg Potassium Chloride 40 meq/ (Dextrose) 520 mls @ 130 mls/hr IV UD PRN PRN Reason: Potassium < 3 Magnesium Sulfate (Magnesium Sulfate) 2 gm in 50 mls @ 50 mls/hr IV UD PRN PRN Reason: Magnesium </= 1.6 Sodium Chloride (Sodium Chloride 0.45%) 1,000 mls @ 125 mls/hr IV .Q8H [facility] Last Admin: 08/25/21 08:10 Dose: Not Given Insulin Human Lispro (Insulin Lispro 1 Unit/0.01 Ml Unit) 0 unit SQ Q6H BRANDI; Protocol Last Admin: 08/25/21 05:49 Dose: 2 units Levothyroxine Sodium (Levothyroxine 100 Mcg Tablet) 175 mcg PO QAMAC [facility] Last Admin: 08/25/21 08:00 Dose: 175 mcg Lorazepam (Lorazepam 2 Mg/Ml Vial) 1 - 2 mg IV Q2HP PRN PRN Reason: Seizure Activity Methocarbamol (Methocarbamol 1,000 Mg/10 Ml Vial) 750 mg IV Q8HP PRN PRN Reason: Muscle Spasm Benzocaine 20% 1 ([place] Bottle) 1 dose TOPICAL Q4HP PRN PRN Reason: SORE THROAT Last Admin: 08/23/21 17:13 Dose: 1 dose Ondansetron HCl (Ondansetron 4 Mg/2 Ml Vial) 4 mg IV Q6HP PRN PRN Reason: Nausea And Vomiting Last Admin: 08/24/21 10:04 Dose: 4 mg Fluticasone Furoate- Vilanterol [Breo Ellipta] 200 Mcg/25 Mcg Inhaler 1 dose INH DAILY BRANDI Last Admin: 08/24/21 10:02 Dose: Not Given Olopatadine 0.2 % (Ophthalmic Drops) 1 dose OU DAILYP PRN PRN Reason: itching Phenytoin Sodium (Phenytoin Sod 100 Mg Capsule) 200 mg PO DAILY BRANDI Phenytoin Sodium (Phenytoin Sod 100 Mg Capsule) 300 mg PO HS BRANDI Potassium Chloride (Potassium Chloride 20 Meq Tablet) 40 meq PO UD PRN PRN Reason: Potssium is 3-3.5 Potassium Chloride (Potassium Chloride 20 Meq Tablet) 40 meq PO UD PRN PRN Reason: Potassium < 3 Sodium Chloride (0.9 % Sodium Chloride 10 Ml Syringe) 10 ml IV Q8 [facility] Last Admin: 08/25/21 05:33 Dose: Not Given A/P Narrative A/P Narrative: A: *SBO: resolving *ANDRES on CKD II: improved *Volume depletion: improved *DM w/hyperglycemia on admit: -A1c 9.1 *Leukocytosis: Likely reactive. afebrile, no bandemia, cxr/ua unremarkable. 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
[2021-08-25] MEDS: FLUTICASONE FUROATE VILANTEROL INH SCH (08:42)
[2021-08-25] MEDS ORDERED: PHENYTOIN SOD 100 MG CAPSULE PO SCH ×2 (09:00→21:00)
[2021-08-25] MEDS ORDERED: FAMOTIDINE 20 MG TABLET PO SCH (09:00)
[2021-08-25] MEDS ORDERED: CARBOXYMETHYLCELLULOSE SODIUM 1 EACH DROPER.GEL OU PRN (09:35)
--- NOTE | 2021-08-25 10:15 | Discharge Summary ---
Discharge Provider Provider IMPORTANT FOLLOW-UP INFORMATION FOR PCP: Patient information: Note initiated : 08/25/21 at 10:12 am Service Date, if different from initiated Date: [] Patient: Nika Carty 65 y/o F admitted on 08/22/21 for Nausea, Vomiting. Chief Complaint: [] Date of admission: 08/22/21 08:48 Discharge date: 08/25/21 Primary care physician: Paula Bazan Consults: 08/22/21 Consult to Physician [CONS] Stat Comment: Consulting Provider: Tomás Villarreal Reason For Exam: Physician to Consult 08/22/21 08:10 Consult to Physician [CONS] Routine Comment: medical managment Consulting Provider: Lavelle Lawson Reason For Exam: Physician to Consult COURSE Hospital Course Hospital course: Patient is admitted with a partial small bowel obstruction. Patient was admitted made n.p.o. placed on NG tube decompression, small bowel follow-through was done but did not show resolution therefore she was placed back on suction for another 24 hours follow-up small bowel follow-through was performed which showed contrast through to the colon and under 2 hours, she then started having bowel movements, is now tolerating regular diet and ready to discharge. Discharge diagnosis: Resolved partial small bowel obstruction Time Spent with Patient Time attestation: Total time spent providing and/or coordinating discharge services: Time spent: Less than 30 minutes Physical Examination Vital Signs Vital signs: Temp Pulse Resp BP Pulse Ox O2 Del Method O2 Flow Rate 97.2 F 71 20 106/63 98 3 08/25/21 08:00 08/25/21 08:00 08/25/21 08:00 08/25/21 08:00 08/25/21 08:00 08/25/21 08:00 08/25/21 03:08 Discharge Plan Patient/Caregiver Discharge Instructions Activity: increase activity as tolerated Diet: Regular Diet Activity Restrictions/Additional Instructions: Follow-up with primary care provider as needed. Prescriptions: Continued risperidone 0.25 mg tablet 0.25 mg PO QHS 30 Days Qty: 30 2RF mirtazapine 30 mg tablet 30 mg PO QHS Qty: 30 3RF benztropine 0.5 mg tablet 0.5 mg PO QHS Qty: 30 2RF sertraline 100 mg tablet See Rx Instructions .ROUTE .COMPLEX Qty: 60 3RF Dose Instruction: TAKE TWO TABLETS BY MOUTH DAILY Rx Instructions: TAKE TWO TABLETS BY MOUTH DAILY (DME) ultra fine 8mm Pen needles 31gX 8mm Qty: 100 10RF Rx Instructions: use as directed-once daily QHS cyanocobalamin (vitamin B-12) 5,000 mcg capsule 5,000 mcg PO QDAY Qty: 30 0RF (DME) Disposable Brief Jumbo X-Large Misc See Rx Instructions .ROUTE .MEDSUPPLY Qty: 96 10RF Rx Instructions: wear daily fluticasone propionate [Flonase Allergy Relief] 50 mcg/actuation spray,suspension 2 spray INTRANASAL QDAY Qty: 16 7RF Rx Instructions: administer 2 puffs into each nostril once a day Januvia 100 mg tablet See Rx Instructions .ROUTE .COMPLEX Qty: 30 5RF Dose Instruction: TAKE ONE TABLET BY MOUTH ONCE DAILY REPLACING ALOGLIPTIN Rx Instructions: TAKE ONE TABLET BY MOUTH ONCE DAILY REPLACING ALOGLIPTIN lancets [TRUEplus Lancets] 33 gauge misc 33 gauge miscellaneous BID MDD 2 lancets Qty: 100 12RF True Metrix Glucose Test Strip Strip See Rx Instructions .ROUTE .COMPLEX Qty: 100 12RF Dose Instruction: TEST BLOOD SUGARS TWICE DAILY AND ONCE AT DINNER TIME *SHOULD LAST 50 DAYS* Rx Instructions: TEST BLOOD SUGARS TWICE DAILY AND ONCE AT DINNER TIME *SHOULD LAST 50 DAYS* levothyroxine 175 mcg tablet 175 mcg PO QAM Qty: 90 2RF metformin 500 mg tablet extended release 24 hr 500 mg PO QDAY Qty: 90 2RF mupirocin 2 % ointment See Rx Instructions .ROUTE .COMPLEX Qty: 22 6RF Dose Instruction: APPLY TO AFFECTED AREA(S) TWICE DAILY FOR SKIN LESION; APPLY FOR 10 DAYS Rx Instructions: APPLY TO AFFECTED AREA(S) TWICE DAILY FOR SKIN LESION; APPLY FOR 10 DAYS famotidine [Pepcid] 20 mg tablet 20 mg PO QDAY Qty: 90 4RF tolterodine 2 mg tablet 2 mg PO BID Qty: 120 0RF Hold Instructions: Doctor's Order Rx Instructions: will need to be seen prior to futher fills, or follow up with PCP for fills phenytoin sodium extended 100 mg capsule See Rx Instructions .ROUTE .COMPLEX Qty: 150 3RF Rx Instructions: 200 mg qAM, 300 mg HS pen needle, diabetic [TRUEplus Pen Needle] 31 gauge x 1/4" needle See Rx Instructions .ROUTE .COMPLEX Qty: 100 5RF Dose Instruction: USE ONE NEEDLE TWICE DAILY WITH INSULIN *SHOULD LAST 50 DAYS* Rx Instructions: USE ONE NEEDLE TWICE DAILY WITH INSULIN *SHOULD LAST 50 DAYS* Tresiba FlexTouch U-200 200 unit/mL (3 mL) insulin pen See Rx Instructions .ROUTE .COMPLEX Qty: 9 6RF Dose Instruction: INJECT 30 UNITS IN THE MORNING AND 25 UNITS (0.125ML) EVERY EVENING ( SUBCUTANEOUSLY ) Rx Instructions: INJECT 30 UNITS IN THE MORNING AND 25 UNITS (0.125ML) EVERY EVENING ( SUBCUTANEOUSLY ) Breo Ellipta 200-25 mcg/dose blister with device 1 inh inhalation QDAY Qty: 60 3RF tamsulosin 0.4 mg capsule 0.4 mg PO QHS Qty: 30 2RF acetaminophen 325 mg tablet 1,000 mg PO Q4H PRN (Reason: Pain) Label Comments: Take 1 to 2 tablets by mouth every 4 to 6 hours as needed for pain or temp over 101 aspirin 81 mg tablet,chewable 81 mg PO QDAY (DME) Diabetic footwear Qty: 1 0RF Dose Instruction: As directed Rx Instructions: As directed loratadine [Claritin] 10 mg tablet 10 mg PO QDAY loperamide [Imodium A-D] 2 mg capsule 2 mg PO Q6H PRN (Reason: Diarrhea) methocarbamol 750 mg tablet 750 mg PO Q8H PRN (Reason: neck pain) magnesium hydroxide 311 mg tablet,chewable 311 mg PO .Q4 hydrocodone-acetaminophen 5-325 mg tablet 1 tab PO Q4H PRN (Reason: Pain) Pepto-Bismol Max St 525 mg/15 mL suspension 525 mg PO QID PRN (Reason: diarrhea) Qty: 354 0RF Rx Instructions: do not exceed 8 doses in a 24 hour period diarrhe nystatin 100,000 unit/gram powder 1 applic TOPICAL QDAY Qty: 30 12RF Label Comments: For 14 days- Apply under breasts Rx Instructions: Apply under breasts and in groin tramadol 50 mg tablet 50 mg PO Q4H PRN (Reason: Pain) olopatadine 0.2 % drops 1 drp ophthalmic (eye) QDAY PRN (Reason: itching) Qty: 2.5 0RF Tresiba FlexTouch U-200 See Rx Instructions .ROUTE .COMPLEX Rx Instructions: 25 U in evening, 30 in AM benzonatate 100 mg Capsule 100 mg PO TID PRN (Reason: Cough) albuterol sulfate 90 mcg/actuation Hfa Aerosol Inhaler 2 puff INHALATION Q6H PRN (Reason: Allergy Symptoms) ondansetron 4 mg Tablet,Disintegrating 4 mg PO Q4H PRN (Reason: Nausea And Vomiting) polyethylene glycol 3350 [Miralax] 17 gram/dose powder 17 g PO QDAY PRN (Reason: Constipation) Gemtesa 75 mg tablet 75 mg PO QDAY Qty: 90 3RF Follow Up Plan Follow up with: Paula Bazan ARNP [Primary Care Provider] - Patient Disposition: Xfer Other Discharge Orders: Discharge Order (Routine); Ordered 08/25/21 Ordered By: Tomás Villarreal Pending Pending Pending: Resuscitation Status Do Not Resuscitate Diet Clear Liquid Diet Start Fri 8 1239 Diagnostic Test (Pha) (Accu-Chek 1 Each Strip) 1 each FS Q6H ON LICENSE OF [facility] Last Admin: 08/25/21 05:46 Dose: 1 each Documented By: Admin: 08/25/21 00:20 Dose: 1 each Documented By: Admin: 08/24/21 17:22 Dose: 1 each Documented By: Co-signed By: JOCE Admin: 08/24/21 12:39 Dose: 1 each Documented By: Admin: 08/24/21 05:55 Dose: 1 each Documented By: Admin: 08/23/21 23:25 Dose: 1 each Documented By: Admin: 08/23/21 17:01 Dose: 1 each Documented By: Admin: 08/23/21 12:14 Dose: 1 each Documented By: Co-signed By: JOCE Admin: 08/23/21 05:34 Dose: 1 each Documented By: Admin: 08/23/21 00:54 Dose: 1 each Documented By: MAYRA Enoxaparin Sodium (Enoxaparin 40 Mg/0.4 Ml Syringe) 40 mg SQ DAILY ON LICENSE OF [facility] Last Admin: 08/25/21 08:21 Dose: 40 mg Documented By: JOSHUA Co-signed By: PALOMA Admin: 08/24/21 08:44 Dose: 40 mg Documented By: Co-signed By: JOCE Admin: 08/23/21 10:00 Dose: 40 mg Documented By: Co-signed By: JOCE Admin: 08/22/21 14:44 Dose: 40 mg Documented By: MAG Famotidine (Famotidine 20 Mg Tablet) 20 mg PO BID ON LICENSE OF [facility] Last Admin: 08/25/21 08:21 Dose: 20 mg Documented By: JOSHUA Co-signed By: PALOMA Hydromorphone HCl (Hydromorphone 0.5 Mg/0.5 Ml Syringe) 0.5 mg IV Q2HP PRN; Protocol PRN Reason: Per Pain Protocol Last Admin: 08/24/21 06:42 Dose: 0.5 mg Documented By: JOCE Insulin Human Lispro (Insulin Lispro 1 Unit/0.01 Ml Unit) 0 unit SQ Q6H ON LICENSE OF [facility]; Protocol Last Admin: 08/25/21 05:49 Dose: 2 units Documented By: Admin: 08/25/21 00:20 Dose: Not Given Documented By: Admin: 08/24/21 17:21 Dose: 4 units Documented By: Co-signed By: JOCE Admin: 08/24/21 12:39 Dose: 2 units Documented By: Admin: 08/24/21 06:05 Dose: Not Given Documented By: Admin: 08/23/21 23:26 Dose: Not Given Documented By: Admin: 08/23/21 17:02 Dose: Not Given Documented By: Admin: 08/23/21 12:14 Dose: 4 units Documented By: Co-signed By: JOCE Admin: 08/23/21 06:46 Dose: Not Given Documented By: Admin: 08/23/21 05:56 Dose: 4 units Documented By: Admin: 08/23/21 00:57 Dose: 6 units Documented By: Admin: 08/22/21 22:06 Dose: 2 units Documented By: MAYRA Levothyroxine Sodium (Levothyroxine 100 Mcg Tablet) 175 mcg PO QAMAC ON LICENSE OF [facility] Last Admin: 08/25/21 08:00 Dose: 175 mcg Documented By: JOSHUA Co-signed By: PALOMA Benzocaine 20% 1 ([place] Bottle) 1 dose TOPICAL Q4HP PRN PRN Reason: SORE THROAT Last Admin: 08/23/21 17:13 Dose: 1 dose Documented By: Co-signed By: JOCE Ondansetron HCl (Ondansetron 4 Mg/2 Ml Vial) 4 mg IV Q6HP PRN PRN Reason: Nausea And Vomiting Last Admin: 08/24/21 10:04 Dose: 4 mg Documented By: Admin: 08/22/21 22:06 Dose: 4 mg Documented By: Admin: 08/22/21 14:43 Dose: 4 mg Documented By: DPIEHL Fluticasone Furoate- Vilanterol [Breo Ellipta] 200 Mcg/25 Mcg Inhaler 1 dose INH DAILY ON [facility] OF [facility] Last Admin: 08/25/21 08:42 Dose: Not Given Documented By: Admin: 08/24/21 10:02 Dose: Not Given Documented By: Phenytoin Sodium (Phenytoin Sod 100 Mg Capsule) 200 mg PO DAILY ON [facility] OF [facility] Last Admin: 08/25/21 08:21 Dose: 200 mg Documented By: JOSHUA Co-signed By: PALOMA Sodium Chloride (0.9 % Sodium Chloride 10 Ml Syringe) 10 ml IV Q8 ON LICENSE OF [facility] Last Admin: 08/25/21 05:33 Dose: Not Given Documented By: Admin: 08/24/21 21:04 Dose: 10 ml Documented By: Admin: 08/24/21 13:18 Dose: Not Given Documented By: Admin: 08/24/21 06:06 Dose: Not Given Documented By: [email or web address] Admin: 08/23/21 20:11 Dose: Not Given Documented By: [email or web address] Admin: 08/23/21 14:17 Dose: Not Given Documented By: Admin: 08/23/21 04:28 Dose: Not Given Documented By: Admin: 08/22/21 22:55 Dose: Not Given Documented By: MAYRA Shift Summary 08/25/21 04:57 Shift Summary by Saritha Robles Primary Diagnosis: Small bowel obstruction Registration Status: Medsurg Inpatient Day of Hospitalization (admit date=day zero): admit 08/22 Date of Surgery (if applicable): N/A Pertinent Medical Dx/Issue(s): DM, seizures, HTN, sleep apnea, schizophrenia, DYLAN, CKD stage 2, torticollis Interventions (wounds, diuresis, etc): Rash to left abdominal fold much improved with use of antifungal powder. Seizure pads in place and suction at bedside. NG discontinued yesterday and pt is tolerating a clear liquid diet. Vital Signs with Trends: BP low normal with adequate MAP's O2, liter flow/saturations: 3 L at night due to sleep apnea, pt states that she should be using a CPAP but doesn't Meds (abo, pain, BP, etc): No PRN's needed this shift Lab/Rad (abnormal results): Neuro/Mental Status: A/O x4 Urinary Elimination (Rodriguez out in 24H?; u.o. > 30mL/hr?): One unmeasured void via BSC mixed with loose, liquid BM. Date of last BM: 08/25/21 Lines/Tubes: IV 22g L&R AC. RAC saline locked. L. infusing 1/2NS@125ml/hr Activity: Assists with turns, up to the chair several times today. Ambulated in the pryor. Up with 1, FWW, gaitbelt. Recommendations/questions for MD: Switch meds back to PO and switch accuchecks from Q6H to ACHS if advancing diet today. Discharge: TBD Initialized on 08/25/21 04:57 - END OF NOTE
[2021-08-25 10:28] LABS: Basophils # (Auto) 0.03 K/mcL (0.00-0.30); Basophils % (Auto) 0.3 % (0.0-2.0); Eosinophils # (Auto) 0.26 K/mcL (0.00-0.70); Eosinophils % (Auto) 2.8 % (0.0-7.0); Hematocrit 35.6 % (34.1-44.9); Hemoglobin 10.6 g/dL (11.2-15.7); Lymphocytes # (Auto) 2.14 K/mcL (1.50-4.80); Lymphocytes % (Auto) 23.3 % (15.5-49.0); Mean Corpuscular HGB Conc 29.8 g/dL (31.0-36.0); Mean Platelet Volume 9.9 fL (7.4-10.4); Monocytes % (Auto) 6.5 % (1.0-12.0); Neutrophils % (Auto) 66.7 % (38.0-78.0); Platelet Count 198 K/mcL (140-440); RBC 4.29 M/mcL (3.59-5.38); Red Cell Distribution Width 15.5 % (11.5-14.5); WBC 9.2 K/mcL (4.5-11.0)
[2021-08-25 10:39] LABS: ALT/SGPT 21 U/L (<40); AST/SGOT 31 U/L (<32); Albumin 3.1 gm/dL (3.2-5.2); Albumin/Globulin Ratio 0.9 (1.0-2.3); Alkaline Phosphatase 130 U/L (39-117); Bilirubin,Direct < 0.2 mg/dL (0-0.3); Bilirubin,Total 0.3 mg/dL (0.1-1.0); Blood Urea Nitrogen 14 mg/dL (8-23); Calcium 8.4 mg/dL (8.6-10.4); Carbon Dioxide 26 mmol/L (22-30); Chloride 101 mmol/L (96-108); Globulin 3.3 gm/dL (2.2-3.7); Glomerular Filtration Rate 77; Glucose 162 mg/dL (70-105); Lactate Dehydrogenase 198 U/L (135-225); Triglycerides 264 mg/dL (<150); Uric Acid 8.1 mg/dL (2.5-8.0)
== END 2021-08-25 10:50 | disposition other institution (70) | DRG 389 ==
LOC: ED 23:30 → MEDSUR 08-22 08:48
PROVIDERS: ADMIT Surgery; ATTEND Surgery

== ENCOUNTER 2021-08-31 12:24 | Observation (INO) ==
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
[2021-08-31] MEDS ORDERED: HEPARIN 5,000 UNIT/ML VIAL IV ONE (13:11)
[2021-08-31] MEDS ORDERED: HEPARIN SOD,PORK IN 0.45% NACL 25,000 UNIT in PREMIX 1 BAG IV SCH (13:15)
[2021-08-31 13:18] LABS: POC Calcium, Ionized 1.19 (1.16-1.32); POC Creatinine 0.7 (0.6-1.2); POC Potassium 3.9 (3.3-5.1)
[2021-08-31] MEDS ORDERED: ENOXAPARIN 100 MG/ML SYRINGE SQ ONE (13:29)
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
[2021-08-31 14:09] LABS: Basophils # (Auto) 0.03 K/mcL (0.00-0.30); Basophils % (Auto) 0.2 % (0.0-2.0); Eosinophils # (Auto) 0.25 K/mcL (0.00-0.70); Eosinophils % (Auto) 2.1 % (0.0-7.0); Hematocrit 34.8 % (34.1-44.9); Hemoglobin 10.6 g/dL (11.2-15.7); Lymphocytes # (Auto) 2.08 K/mcL (1.50-4.80); Lymphocytes % (Auto) 17.3 % (15.5-49.0); Mean Cell Volume 80.2 fL (80.0-100.0); Mean Corpuscular HGB Conc 30.5 g/dL (31.0-36.0); Mean Platelet Volume 9.9 fL (7.4-10.4); Monocytes # (Auto) 0.85 K/mcL (0.10-0.90); Monocytes % (Auto) 7.1 % (1.0-12.0); Neutrophils % (Auto) 72.9 % (38.0-78.0); Platelet Count 271 K/mcL (140-440); RBC 4.34 M/mcL (3.59-5.38); Red Cell Distribution Width 16.2 % (11.5-14.5)
[2021-08-31 14:54] LABS: Partial Thromboplastin Time 28.4 sec (20.0-37.0); Prothrombin Time 14.1 sec (11.9-14.5)
[2021-08-31 15:00] LABS: ALT/SGPT 19 U/L (<40); AST/SGOT 21 U/L (<32); Albumin 3.9 gm/dL (3.2-5.2); Alkaline Phosphatase 125 U/L (39-117); Bilirubin,Direct < 0.2 mg/dL (0-0.3); Bilirubin,Total < 0.2 mg/dL (0.1-1.0)
[2021-08-31] MEDS ORDERED: DEXTROSE 31 GM ORAL.SUSP PO PRN (16:23)
[2021-08-31] MEDS ORDERED: DEXTROSE 50% 50 ML VIAL IV PRN (16:23)
[2021-08-31] MEDS ORDERED: BISACODYL 10 MG SUPP.RECT PR PRN (16:23)
[2021-08-31] MEDS ORDERED: ONDANSETRON 4 MG ODT TABLET SL PRN (16:23)
[2021-08-31] MEDS ORDERED: MAGNESIUM SULFATE 2 GM/50 ML BAG IV PRN (16:23)
[2021-08-31] MEDS ORDERED: IPRATROPIUM/ALBUTEROL 3 ML AMPUL.NEB NEB PRN (16:23)
[2021-08-31] MEDS ORDERED: POTASSIUM CHLORIDE 40 MEQ in DEXTROSE 5% IN WATER 500 ML IV PRN (16:23)
[2021-08-31] MEDS ORDERED: POLYETHYLENE GLYCOL 3350 17 GM PACKET PO PRN (16:23)
[2021-08-31] MEDS ORDERED: MELATONIN 3 MG TABLET PO PRN (16:23)
[2021-08-31] MEDS ORDERED: ONDANSETRON 4 MG/2 ML VIAL IV PRN (16:23)
[2021-08-31] MEDS ORDERED: ACETAMINOPHEN 650 MG/65 ML BAG IV PRN (16:23)
[2021-08-31] MEDS: 0.9 % SODIUM CHLORIDE 10 ML SYRINGE IV SCH ×2 (17:29→20:17)
[2021-08-31] MEDS: INSULIN LISPRO 1 UNIT/0.01 ML UNIT SQ SCH ×2 (17:30→20:16)
[2021-08-31] MEDS: ACETAMINOPHEN 325 MG TABLET PO PRN (20:16)
[2021-08-31] MEDS: APIXABAN 5 MG TABLET PO SCH (20:16)
[2021-08-31] MEDS: DOCUSATE SODIUM 100 MG CAPSULE PO SCH (20:16)
[2021-08-31] MEDS ORDERED: SENNOSIDES/DOCUSATE SODIUM 1 TAB TABLET PO SCH (21:00)
[2021-09-01] MEDS: ACETAMINOPHEN 325 MG TABLET PO PRN ×2 (02:37→11:47)
[2021-09-01] MEDS: 0.9 % SODIUM CHLORIDE 10 ML SYRINGE IV SCH ×2 (05:19→16:50)
[2021-09-01 06:51] LABS: Basophils # (Auto) 0.03 K/mcL (0.00-0.30); Basophils % (Auto) 0.4 % (0.0-2.0); Eosinophils # (Auto) 0.24 K/mcL (0.00-0.70); Hematocrit 36.5 % (34.1-44.9); Hemoglobin 10.7 g/dL (11.2-15.7); Lymphocytes # (Auto) 1.75 K/mcL (1.50-4.80); Lymphocytes % (Auto) 21.8 % (15.5-49.0); Mean Cell Volume 80.6 fL (80.0-100.0); Mean Corpuscular HGB Conc 29.3 g/dL (31.0-36.0); Mean Platelet Volume 9.4 fL (7.4-10.4); Monocytes % (Auto) 7.5 % (1.0-12.0); Neutrophils % (Auto) 67.1 % (38.0-78.0); Platelet Count 265 K/mcL (140-440); RBC 4.53 M/mcL (3.59-5.38); Red Cell Distribution Width 16.4 % (11.5-14.5)
[2021-09-01 07:19] LABS: ALT/SGPT 19 U/L (<40); AST/SGOT 22 U/L (<32); Albumin 3.6 gm/dL (3.2-5.2); Albumin/Globulin Ratio 1.1 (1.0-2.3); Alkaline Phosphatase 117 U/L (39-117); Bilirubin,Direct < 0.2 mg/dL (0-0.3); Bilirubin,Total < 0.2 mg/dL (0.1-1.0); Blood Urea Nitrogen 9 mg/dL (8-23); Calcium 8.8 mg/dL (8.6-10.4); Carbon Dioxide 28 mmol/L (22-30); Chloride 106 mmol/L (96-108); Globulin 3.2 gm/dL (2.2-3.7); Glomerular Filtration Rate 77; Glucose 197 mg/dL (70-105); Lactate Dehydrogenase 170 U/L (135-225); Phosphorous 3.8 mg/dL (2.5-4.5); Triglycerides 198 mg/dL (<150); Uric Acid 6.8 mg/dL (2.5-8.0)
[2021-09-01] MEDS: INSULIN LISPRO 1 UNIT/0.01 ML UNIT SQ SCH ×2 (07:49→11:47)
[2021-09-01] MEDS: DOCUSATE SODIUM 100 MG CAPSULE PO SCH (08:08)
[2021-09-01] MEDS: APIXABAN 5 MG TABLET PO SCH (08:08)
--- NOTE | 2021-09-01 08:08 | Discharge Summary ---
Discharge Provider Provider IMPORTANT FOLLOW-UP INFORMATION FOR PCP: Patient information: Note initiated : 09/01/21 at 8:05 am Service Date, if different from initiated Date: [] Patient: Nika Carty a 65 y/o F admitted on 08/31/21 for DVT. Chief Complaint: [] Date of admission: 08/31/21 15:18 Discharge date: 09/01/21 Primary care physician: Paula Bazan Consults: 08/31/21 Consult to Physician [CONS] Stat Comment: Consulting Provider: Soto Mcclelland Reason For Exam: Physician to Consult Consult to Physician [CONS] Stat Comment: Consulting Provider: Soto Mcclelland Reason For Exam: Physician to Consult COURSE Hospital Course Hospital course: Discharge diagnosis * Left upper extremity venous thrombosis with thrombophlebitis and pain. On full dose anticoagulation on DOAC Eliquis * DM type II-managed on home dose basal prandial insulin/CC diet/sitagliptin/metformin * History of seizure disorder resume home dose phenytoin * Anxiety depression continue sertraline/mirtazapine * KYLEE/obesity hypoventilation syndrome * Hypothyroidism continue home dose thyroxine * DJD continue home dose tramadol * GERD Brief hospital course Ms. Carty is a 65 year old F who was recently admitted following an episode of bowel obstruction and discharged to [facility] on August 25. Patient has been doing well until this morning she woke up with left forearm swelling pain along with hand swelling. She was evaluated in minor care with an ultrasound that revealed cephalic and radial vein thrombosis. Patient was subsequently sent to the ER for further evaluation. Patient was started on Lovenox and subsequently hospitalist service was consulted in light of pain and swelling and DVT. 09/01-patient doing well. No overnight events. No concerns per staff. No fever chills nausea vomiting. Left arm swelling much improved. Patient feels at baseline. Discharging on Eliquis to continue for at least 3 months. Follow-up with PCP in 5 to 7 days. Continue limb elevation/Tylenol for pain relief Discharge diagnosis: Upper extremity thrombosis/phlebitis Time Spent with Patient Time attestation: Total time spent providing and/or coordinating discharge services: Time spent: Greater than 30 minutes EXAM Constitutional Vitals: Temp Pulse Resp BP Pulse Ox O2 Del Method 97.0 F 78 20 163/78 91 09/01/21 03:20 09/01/21 03:20 09/01/21 03:20 09/01/21 03:20 09/01/21 03:20 09/01/21 03:20 Discharge Data Data Completed and Pending Labs on day of discharge: Labs from last 24 hours 09/01/21 09/01/21 08/31/21 05:47 05:47 13:15 WBC 8.0 RBC 4.53 Hgb 10.7 L Hct 36.5 POC Hct MCV 80.6 MCH 23.6 L MCHC 29.3 L RDW 16.4 H Plt Count 265 MPV 9.4 Immature Gran % (Auto) 0.2 Neut % (Auto) 67.1 Lymph % (Auto) 21.8 [place] % (Auto) 7.5 Eos % (Auto) 3.0 Baso % (Auto) 0.4 Lymph # (Auto) 1.75 [place] # (Auto) 0.60 Eos # (Auto) 0.24 Baso # (Auto) 0.03 Immature Gran # 0.02 Absolute Neutrophils 5.39 PT 14.1 INR 1.0 APTT 28.4 POC Sodium Sodium 144 POC Potassium Potassium 3.8 POC Chloride Chloride 106 Carbon Dioxide 28 POC Total CO2 Anion Gap 10.0 POC BUN BUN 9 Creatinine 0.8 POC Creatinine GFR Calculation 77 Glucose 197 H POC Glucose Uric Acid 6.8 Calcium 8.8 POC WB Ioniz Calcium Phosphorus 3.8 Magnesium 1.9 Total Bilirubin < 0.2 Direct Bilirubin < 0.2 GGT 240 H AST 22 ALT 19 Alkaline Phosphatase 117 Lactate Dehydrogenase 170 Total Protein 6.8 Albumin 3.6 Globulin 3.2 Albumin/Globulin Ratio 1.1 Triglycerides 198 H 08/31/21 08/31/21 08/31/21 13:15 13:15 13:14 WBC 12.0 H RBC 4.34 Hgb 10.6 L Hct 34.8 POC Hct 36.0 MCV 80.2 MCH 24.4 L MCHC 30.5 L RDW 16.2 H Plt Count 271 MPV 9.9 Immature Gran % (Auto) 0.4 Neut % (Auto) 72.9 Lymph % (Auto) 17.3 Hutchinson % (Auto) 7.1 Eos % (Auto) 2.1 Baso % (Auto) 0.2 Lymph # (Auto) 2.08 [place]inson # (Auto) 0.85 Eos # (Auto) 0.25 Baso # (Auto) 0.03 Immature Gran # 0.05 Absolute Neutrophils 8.82 H PT INR APTT POC Sodium 142 Sodium POC Potassium 3.9 Potassium POC Chloride 99 Chloride Carbon Dioxide POC Total CO2 28.0 Anion Gap POC BUN 13 BUN Creatinine POC Creatinine 0.7 GFR Calculation Glucose POC Glucose 155 H Uric Acid Calcium POC WB Ioniz Calcium 1.19 Phosphorus Magnesium Total Bilirubin < 0.2 Direct Bilirubin < 0.2 GGT AST 21 ALT 19 Alkaline Phosphatase 125 H Lactate Dehydrogenase Total Protein 6.9 Albumin 3.9 Globulin 3.0 Albumin/Globulin Ratio Triglycerides Discharge Plan Patient/Caregiver Discharge Instructions Activity: increase activity as tolerated Diet: Consistent Carbohydrate Activity Restrictions/Additional Instructions: Continue Eliquis 10 mg twice daily followed by 5 mg twice daily after a week Follow-up PCP in 5 to 7 days Prescriptions: New Eliquis 5 mg Tablet 10 mg PO BID 30 Days Qty: 120 0RF Rx Instructions: Continue 10 mg twice daily for 7 days followed by 5 mg twice daily for 3 months Continued mirtazapine 30 mg tablet 30 mg PO QHS Qty: 30 3RF sertraline 100 mg tablet See Rx Instructions .ROUTE .COMPLEX Qty: 60 3RF Dose Instruction: TAKE TWO TABLETS BY MOUTH DAILY Rx Instructions: TAKE TWO TABLETS BY MOUTH DAILY (DME) ultra fine 8mm Pen needles 31gX 8mm Qty: 100 10RF Rx Instructions: use as directed-once daily QHS cyanocobalamin (vitamin B-12) 5,000 mcg capsule 5,000 mcg PO QDAY Qty: 30 0RF (DME) Disposable Brief Jumbo X-Large Misc See Rx Instructions .ROUTE .MEDSUPPLY Qty: 96 10RF Rx Instructions: wear daily fluticasone propionate [Flonase Allergy Relief] 50 mcg/actuation spray,suspension 2 spray INTRANASAL QDAY Qty: 16 7RF Rx Instructions: administer 2 puffs into each nostril once a day Januvia 100 mg tablet See Rx Instructions .ROUTE .COMPLEX Qty: 30 5RF Dose Instruction: TAKE ONE TABLET BY MOUTH ONCE DAILY REPLACING ALOGLIPTIN Rx Instructions: TAKE ONE TABLET BY MOUTH ONCE DAILY REPLACING ALOGLIPTIN lancets [TRUEplus Lancets] 33 gauge misc 33 gauge miscellaneous BID MDD 2 lancets Qty: 100 12RF True Metrix Glucose Test Strip Strip See Rx Instructions .ROUTE .COMPLEX Qty: 100 12RF Dose Instruction: TEST BLOOD SUGARS TWICE DAILY AND ONCE AT DINNER TIME *SHOULD LAST 50 DAYS* Rx Instructions: TEST BLOOD SUGARS TWICE DAILY AND ONCE AT DINNER TIME *SHOULD LAST 50 DAYS* levothyroxine 175 mcg tablet 175 mcg PO QAM Qty: 90 2RF metformin 500 mg tablet extended release 24 hr 500 mg PO QDAY Qty: 90 2RF mupirocin 2 % ointment See Rx Instructions .ROUTE .COMPLEX Qty: 22 6RF Dose Instruction: APPLY TO AFFECTED AREA(S) TWICE DAILY FOR SKIN LESION; APPLY FOR 10 DAYS Rx Instructions: APPLY TO AFFECTED AREA(S) TWICE DAILY FOR SKIN LESION; APPLY FOR 10 DAYS famotidine [Pepcid] 20 mg tablet 20 mg PO QDAY Qty: 90 4RF tolterodine 2 mg tablet 2 mg PO BID Qty: 120 0RF Hold Instructions: Doctor's Order Rx Instructions: will need to be seen prior to futher fills, or follow up with PCP for fills phenytoin sodium extended 100 mg capsule See Rx Instructions .ROUTE .COMPLEX Qty: 150 3RF Rx Instructions: 200 mg qAM, 300 mg HS pen needle, diabetic [TRUEplus Pen Needle] 31 gauge x 1/4" needle See Rx Instructions .ROUTE .COMPLEX Qty: 100 5RF Dose Instruction: USE ONE NEEDLE TWICE DAILY WITH INSULIN *SHOULD LAST 50 DAYS* Rx Instructions: USE ONE NEEDLE TWICE DAILY WITH INSULIN *SHOULD LAST 50 DAYS* Tresiba FlexTouch U-200 200 unit/mL (3 mL) insulin pen See Rx Instructions .ROUTE .COMPLEX Qty: 9 6RF Dose Instruction: INJECT 30 UNITS IN THE MORNING AND 25 UNITS (0.125ML) EVERY EVENING ( SUBCUTANEOUSLY ) Rx Instructions: INJECT 30 UNITS IN THE MORNING AND 25 UNITS (0.125ML) EVERY EVENING ( SUBCUTANEOUSLY ) Breo Ellipta 200-25 mcg/dose blister with device 1 inh inhalation QDAY Qty: 60 3RF tamsulosin 0.4 mg capsule 0.4 mg PO QHS Qty: 30 2RF acetaminophen 325 mg tablet 1,000 mg PO Q4H PRN (Reason: Pain) Label Comments: Take 1 to 2 tablets by mouth every 4 to 6 hours as needed for pain or temp over 101 aspirin 81 mg tablet,chewable 81 mg PO QDAY (DME) Diabetic footwear Qty: 1 0RF Dose Instruction: As directed Rx Instructions: As directed loratadine [Claritin] 10 mg tablet 10 mg PO QDAY loperamide [Imodium A-D] 2 mg capsule 2 mg PO Q6H PRN (Reason: Diarrhea) methocarbamol 750 mg tablet 750 mg PO Q8H PRN (Reason: neck pain) magnesium hydroxide 311 mg tablet,chewable 311 mg PO .Q4 hydrocodone-acetaminophen 5-325 mg tablet 1 tab PO Q4H PRN (Reason: Pain) Pepto-Bismol Max St 525 mg/15 mL suspension 525 mg PO QID PRN (Reason: diarrhea) Qty: 354 0RF Rx Instructions: do not exceed 8 doses in a 24 hour period diarrhe nystatin 100,000 unit/gram powder 1 applic TOPICAL QDAY Qty: 30 12RF Label Comments: For 14 days- Apply under breasts Rx Instructions: Apply under breasts and in groin tramadol 50 mg tablet 50 mg PO Q4H PRN (Reason: Pain) olopatadine 0.2 % drops 1 drp ophthalmic (eye) QDAY PRN (Reason: itching) Qty: 2.5 0RF Tresiba FlexTouch U-200 See Rx Instructions .ROUTE .COMPLEX Rx Instructions: 25 U in evening, 30 in AM benzonatate 100 mg Capsule 100 mg PO TID PRN (Reason: Cough) albuterol sulfate 90 mcg/actuation Hfa Aerosol Inhaler 2 puff INHALATION Q6H PRN (Reason: Allergy Symptoms) ondansetron 4 mg Tablet,Disintegrating 4 mg PO Q4H PRN (Reason: Nausea And Vomiting) polyethylene glycol 3350 [Miralax] 17 gram/dose powder 17 g PO QDAY PRN (Reason: Constipation) Gemtesa 75 mg tablet 75 mg PO QDAY Qty: 90 3RF Follow Up Plan Follow up with: Paula Bazan ARNP [Primary Care Provider] - Patient Disposition: Home, Self-Care Rehab Potential: Good I certify that the patient requires SNF services: No Overall status at discharge: patient is progressing back to baseline Discharge Orders: Discharge Order (Routine); Ordered 09/01/21 Ordered By: Soto POLANCO VTE Deep Vein Thrombosis/Pulmonary Embolism Present on Admission: Yes
[2021-09-01] MEDS ORDERED: MULTIVIT,THER IRON,CA,FA & MIN 1 TABLET PO SCH (09:00)
== END 2021-09-01 13:30 | disposition home or self-care (01) ==
LOC: MEDSUR 12:24 → ED 12:24 → MEDSUR 15:30
PROVIDERS: ADMIT Internal Medicine; ATTEND Internal Medicine